=== PATIENT | male | born 1955 | race Caucasian/White ===

== ENCOUNTER 2017-02-22 07:20 | Emergency (ER) | payer MEDICARE, OTHER ==
[~2017-02-22] VITALS: Ht 182.9 cm; Wt 77.1 kg
--- NOTE | 2017-02-22 07:58 | ED Upper Extremity ---
General Chief Complaint: Upper Extremity Stated Complaint: L HAND SWELLING Nursing Triage Note: PT REPORTS HE SLIPPED IN THE MUD ON FRIDAY AND CAUGHT HIMSELF WITH HIS L HAND. HE INTITIALLY NOTED PAIN AND SWELLING TO L MIDDLE FINGER. HE REPORTS THAT AT 0100 THIS AM THE TOP OF HIS HAND ALSO BEGAN TO SWELL AND HE HAS INCREASED PAIN. Nursing Sepsis Screen: No Definite Risk Source: patient Exam Limitations: no limitations History of Present Illness Time seen by provider: 07:53 Initial Comments This 61-year-old white male presents with a complaint of progressive pain and swelling in his left middle finger now extending to his wrist that occurred 4 days ago when he inadvertently [place] Patient states that he fell on an outstretched left hand. He believes he sustained a hyperextension injury to the left middle finger. Patient has noted increasing pain and swelling to the PIP joint of the affected digit. He is now having associated pain and swelling to the left wrist. 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 The patient denies similar episodes in the past. He has no history of gout. 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 The patient takes levothyroxine. Patient's pain is sharp in nature, severe in quality, and made worse by active or passive movement of the fingers particularly the left middle finger as well as his left wrist. Allergies and Home Medications Allergies Coded Allergies: No Known Drug Allergies (Unverified , 02/22/17) Constitutional: No chills, No fever EENTM: No vision loss Respiratory: No short of breath Cardiovascular: No chest pain Gastrointestinal: No abdominal pain, No nausea Genitourinary: no symptoms reported Musculoskeletal: see HPI, joint pain (left hand middle finger and wrist) Skin: change in color (there is erythema to the left hand and wrist most pronounced over the PIP joint of the left middle finger and the dorsum of the left wrist.) Psychiatric/Neurological: No Symptoms Reported Past Xyzvity-Inyrrj-Xwyska Hx Patient Social History Alcohol Use: Occasionally Uses Recreational Drug Use: No Smoking Status: Former Smoker Type Used: Cigarettes, Electronic/Vapor 2nd Hand Smoke Exposure: No Recent Foreign Travel: No Contact w/Someone Who Travel: No Recent Infectious Disease Expo: No Recent Hopitalizations: No Physical Abuse: No Sexual Abuse: No Seasonal Allergies Seasonal Allergies: No Surgeries History of Surgeries: Yes Surgeries: Adenoidectomy, Orthopedic, Thyroidectomy Respiratory History of Respiratory Disorde: No Neurological History of Neurological Disord: No Genitourinary History of Genitourinary Disor: No Gastrointestinal History of Gastrointestinal Di: No Musculoskeletal History of Musculoskeletal Dis: No Endocrine History of Endocrine Disorders: Yes Endocrine Disorders: Hypothyroidsim HEENT History of HEENT Disorders: No Cancer History of Cancer: Yes Cancer: Thyroid Did You Recieve Any Treatments: No Psychosocial History of Psychiatric Problem: No Suicide Risk Score: 0 Integumentary History of Skin or Integumenta: No Blood Transfusions History of Blood Disorders: No Adverse Reaction to a Blood Tr: No Reviewed Nursing Assessment Reviewed/Agree w Nursing PMH: Yes Physical Exam Vital Signs Vital Sign - Last 12Hours 02/22/17 07:34 Temp 97.9 Pulse 68 Resp 18 B/P (MAP) 141/96 Pulse Ox 99 O2 Delivery Room Air Capillary Refill : Less Than 3 Seconds General Appearance: WD/WN, no apparent distress HEENT: normal ENT inspection Neck: normal inspection Cardiovascular: regular rate, rhythm Respiratory: lungs clear Gastrointestinal: normal bowel sounds, non tender Back: normal inspection Shoulder: normal inspection Elbow/Forearm: normal inspection Wrist: Yes swelling (there is swelling and erythema over the patient's left wrist and associated pain with passive movement.) Hand: Left (there is erythema swelling and tenderness to the PIP joint of the left middle finger. There is no evidence of puncture wound or abrasion to the hands and wrists.) Neurologic/Psychiatric: no motor/sensory deficits, alert, normal mood/affect Skin: other (erythema to the left hand and wrist) Progress/Results/Core Measures Results/Orders Lab Results Laboratory Tests Test 02/22/17 07:55 Range/Units White Blood Count 5.3 4.3-11.0 10^3/uL Red Blood Count 4.28 L 4.35-5.85 10^6/uL Hemoglobin 13.7 13.3-17.7 G/DL Hematocrit 40 40-54 % Mean Corpuscular Volume 93 80-99 FL Mean Corpuscular Hemoglobin 32 25-34 PG Mean Corpuscular Hemoglobin Concent 34 32-36 G/DL Red Cell Distribution Width 12.3 10.0-14.5 % Platelet Count 162 130-400 10^3/uL Mean Platelet Volume 9.8 7.4-10.4 FL Neutrophils (%) (Auto) 69 42-75 % Lymphocytes (%) (Auto) 11 L 12-44 % Monocytes (%) (Auto) 15 H 0-12 % Eosinophils (%) (Auto) 5 0-10 % Basophils (%) (Auto) 1 0-10 % Neutrophils # (Auto) 3.7 1.8-7.8 X 10^3 Lymphocytes # (Auto) 0.6 L 1.0-4.0 X 10^3 Monocytes # (Auto) 0.8 0.0-1.0 X 10^3 Eosinophils # (Auto) 0.2 0.0-0.3 10^3/uL Basophils # (Auto) 0.1 0.0-0.1 10^3/uL Erythrocyte Sedimentation Rate 17 0-30 MM/HR Uric Acid 8.2 H 2.6-7.2 MG/DL My Orders Orders - SHELLIE HUTTON MD Hand, Left, 3 Views (02/22/17 07:46) Cbc With Automated Diff (02/22/17 07:51) Erythrocyte Sedimentation Rate (02/22/17 07:51) Uric Acid (02/22/17 07:51) Wrist, Left, 3 Views Or More (02/22/17 07:46) Vital Signs/I&O Vital Sign - Last 12Hours 02/22/17 07:34 Temp 97.9 Pulse 68 Resp 18 B/P (MAP) 141/96 Pulse Ox 99 O2 Delivery Room Air Blood Pressure Mean: 111 Progress Note : Time: 09:18 Progress Note The patient's CBC and sedimentation rate were unremarkable. The patient's uric acid was elevated at 8.2. The patient's x-rays of the left hand and wrist demonstrated degenerative changes but no evidence of acute pathology. Departure Impression Impression: Primary Impression: Gout attack Qualified Codes: M10.042 - Idiopathic gout, left hand Disposition: HOME, SELF-CARE Condition: Unchanged Departure-Patient Inst. Decision time for Depature: 09:20 Referrals: NO,LOCAL PHYSICIAN (PCP) Primary Care Physician Patient Instructions: Gout (DC) Add. Discharge Instructions: Indocin and Vicodin as prescribed. Close follow-up with your caregiver of choice or [facility] on Friday. Come back for any problems or questions. All discharge instructions reviewed with patient and/or family. Voiced understanding. SHELLIE HUTTON MD Feb 22, 2017 07:58
[2017-02-22 08:03] LABS: BASOPHILS # (AUTO) 0.1 10^3/uL (0.0-0.1); BASOPHILS % (AUTO) 1 % (0-10); EOSINOPHILS # (AUTO) 0.2 10^3/uL (0.0-0.3); EOSINOPHILS % (AUTO) 5 % (0-10); LYMPHOCYTES # (AUTO) 0.6 X 10^3 (1.0-4.0); LYMPHOCYTES % (AUTO) 11 % (12-44); MEAN CORPUSCULAR HEMOGLOBIN 32 PG (25-34); MEAN CORPUSCULAR HGB CONC 34 G/DL (32-36); MEAN CORPUSCULAR VOLUME 93 FL (80-99); MEAN PLATELET VOLUME 9.8 FL (7.4-10.4); MONOCYTES # (AUTO) 0.8 X 10^3 (0.0-1.0); MONOCYTES % (AUTO) 15 % (0-12); NEUTROPHILS # (AUTO) 3.7 X 10^3 (1.8-7.8); NEUTROPHILS % (AUTO) 69 % (42-75); PLATELET COUNT 162 10^3/uL (130-400); RED BLOOD COUNT 4.28 10^6/uL (4.35-5.85); RED CELL DISTRIBUTION WIDTH 12.3 % (10.0-14.5); WHITE BLOOD COUNT 5.3 10^3/uL (4.3-11.0)
[2017-02-22 08:27] LABS: ERYTHROCYTE SEDIMENTATION RATE 17 MM/HR (0-30)
--- NOTE | 2017-02-22 08:30 | Diagnostic Imaging Report ---
EXAM: HAND, LEFT, 3 VIEWS INDICATION: Fall. Left wrist and hand pain. COMPARISON: None. FINDINGS: Mild degenerative changes in the carpals, most marked at the STT articulation. No fractures. No radiopaque foreign bodies. IMPRESSION: No acute radiographic findings in the left hand. Dictated by: Dictated on workstation # [id number]
--- NOTE | 2017-02-22 08:32 | Diagnostic Imaging Report ---
EXAM: WRIST, LEFT, 3 VIEWS OR MORE INDICATION: Fall with left wrist and hand pain. COMPARISON: None. FINDINGS: Mild degenerative changes in the carpal bones most marked in the STT articulation. Well-corticated bodies along the ulnar and radial styloids appear chronic. No acute fractures. Soft tissue shadows are unremarkable with no radiopaque foreign bodies. IMPRESSION: No acute radiographic findings in the left wrist. Dictated by: Dictated on workstation # [id number]
[2017-02-22 09:35] VITALS: BP 141/96
== END 2017-02-22 09:35 | disposition home or self-care (01) ==
LOC: ER 07:23
DX: M10.9 Gout, unspecified (principal); M21.931 Unspecified acquired deformity of right forearm; Z85.850 Personal history of malignant neoplasm of thyroid; Z90.89 Acquired absence of other organs; Z92.3 Personal history of irradiation; Z87.891 Personal history of nicotine dependence; Z87.828 Personal history of other (healed) physical injury and trauma
CPT/HCPCS: 36415; 73110; 73130; 84550; 85025; 85652; 99282